=== PATIENT | female | born 1970 | race Caucasian/White ===

== ENCOUNTER 2016-06-20 12:28 | Emergency (ER) | payer BC, OTHER ==
[2016-06-20] MEDS ORDERED: ONDANSETRON 4 MG/2 ML VIAL ONE (12:55)
[2016-06-20] MEDS ORDERED: fentaNYL 100 MCG/2 ML INJ ONE (12:55)
[2016-06-20] MEDS ORDERED: NS 1,000 ML IV ONE ×2 (12:56→15:00)
[2016-06-20] MEDS ORDERED: fentaNYL 100 MCG/2 ML INJ IVP ONE (13:10)
[2016-06-20] MEDS ORDERED: ONDANSETRON 4 MG/2 ML VIAL IVP ONE (13:11)
[2016-06-20 13:13] LABS: % IMMATURE GRANULYOCYTES 0.2 % (0.0-1.1); ABSOLUTE IMMATURE GRANULOCYTES 0.01 10^3/uL (0.00-0.10); ADD DIFF? NO; ADD MORPH? NO; ADD SCAN? NO; ATYPICAL LYMPHOCYTE FLAG 50 (0-99); FRAGMENT RBC FLAG 0 (0-99); HEMATOCRIT 37.6 % (38.0-47.0); HEMOGLOBIN 13.4 g/dL (12.6-16.3); LEFT SHIFT FLG 0 (0-99); LIPEMIA HEMOLYSIS FLAG 90 (0-99); MEAN CELL HEMOGLOBIN CONCENTR. 35.6 g/dL (32.4-36.7); MEAN CELL VOLUME 92.6 fL (81.5-99.8); MEAN PLATELET VOLUME 10.4 fL (8.7-11.7); PLATELET CLUMPS FLAG 0 (0-99); PLATELET COUNT 222 10^3/uL (150-400); RED BLOOD CELL COUNT 4.06 10^6/uL (4.18-5.33); RED CELL DISTRIBUTION WIDTH 12.2 % (11.5-15.2)
[2016-06-20 13:50] LABS: ALANINE AMINOTRANSFERASE 33 IU/L (9-52); ALKALINE PHOSPHATASE 48 IU/L (38-126); ANION GAP 8 mEq/L (8-16); ASPARTATE AMINOTRANSFERASE 25 IU/L (14-46); BILIRUBIN,TOTAL 0.5 mg/dL (0.1-1.4); BILIRUBIN-CONJUGATED 0.3 mg/dL (0.0-0.5); BILIRUBIN-UNCONJUGATED 0.2 mg/dL (0.0-1.1); CALCIUM 9.3 mg/dL (8.5-10.4); CARBON DIOXIDE 24 mEq/l (22-31); CHLORIDE 107 mEq/L (97-110); CREATININE 0.8 mg/dL (0.6-1.0); GLOMERULAR FILTRATION RATE > 60; GLUCOSE 96 mg/dL (70-100); POTASSIUM 3.8 mEq/L (3.5-5.2); SODIUM 139 mEq/L (134-144)
[2016-06-20] MEDS ORDERED: HYDROmorphONE/DILAUDID 1 MG/ML SYR IVP ONE ×2 (14:09→15:00)
[2016-06-20] MEDS ORDERED: IOPAMIDOL (ISOVUE-300) 100 ML BTL IV ONE (14:21)
[2016-06-20 14:24] LABS: COLOR YELLOW; LEUKOCYTE ESTERASE,URINE TRACE (NEGATIVE); NITRITE,URINE NEGATIVE (NEGATIVE)
[2016-06-20 14:27] LABS: BACTERIA TRACE /hpf (NONE SEEN); MUCUS TRACE /lpf (NONE-1+)
--- NOTE | 2016-06-20 15:24 | EDPHY ---
H & P Stated Complaint: hx ibs/n/v/d since sat llq abd pain - Personal History LMP (Females 10-55): 1-7 Days Ago Current Tetanus/Diphtheria Vaccine: Yes - Medical/Surgical History Hx Asthma: No Hx Chronic Respiratory Disease: No Hx Diabetes: No Hx Cardiac Disease: No Hx Renal Disease: No Hx Cirrhosis: No Hx Alcoholism: No Hx HIV/AIDS: No Hx Splenectomy or Spleen Trauma: No Other PMH: ibs - Social History Smoking Status: Never smoked HPI/ROS: Chief complaint: Abdominal pain History of present illness: This is a 45-year-old female who presents to the emergency department for evaluation of abdominal pain. Patient reports the onset of pain over the last day. She describes diffuse pain that is most pronounced in the lower abdomen. She states prior to the onset of symptoms she had nausea, vomiting and diarrhea, that was a few days prior to the symptoms and has resolved. She denies any specific precipitating factors. She denies any alleviating factors. She denies other associated signs or symptoms including no fevers, no urinary symptoms. She does have a history of IBS and has had abdominal pain problems in the past. Review of systems: A 10 point review of systems was obtained and other than described above was negative (Miki Villela) - Physical Exam Exam: General Appearance: Alert, unwell appearing. Eyes: Pupils equal and round no pallor or injection. ENT, Mouth: Mucous membranes moist. Respiratory: There are no retractions, lungs are clear to auscultation. Cardiovascular: Regular rate and rhythm. Gastrointestinal: Bowel sounds normal. Abdomen is soft, nondistended. There is diffuse tenderness most pronounced in the lower quadrants bilaterally. There is McBurney's point tenderness, when I press in this region she does wince. No obvious peritoneal signs. Neurological: Alert and oriented x4. Strength and sensation intact and symmetrical. Skin: Warm and dry, no rashes. Musculoskeletal: Neck is supple non tender. Extremities are symmetrical, full range of motion. Psychiatric: Patient is oriented X 3, there is no agitation. (Miki Villela) Constitutional: Initial Vital Signs Temperature (C) 36.8 C 06/20/16 12:39 Heart Rate 56 L 06/20/16 12:39 Respiratory Rate 16 06/20/16 12:39 Blood Pressure 105/64 06/20/16 12:39 O2 Sat (%) 99 06/20/16 12:39 O2 Delivery Mode Nasal Cannula O2 (L/minute) 2 Allergies/Adverse Reactions: No Known Allergies Allergy (Unverified 06/20/16 12:37) Home Medications: Medication Instructions Recorded Cephalexin [Keflex (*)] 500 mg PO TID #21 cap 06/20/16 Dicyclomine 06/20/16 Hydrocodone/APAP 5/325 [[place] 1 - 2 tab PO Q4H PRN #10 tab 06/20/16 5/325] Ondansetron Odt [Zofran Odt 4 mg 4 mg PO Q4 PRN #6 tab 06/20/16 (*)] Xanax 06/20/16 Medical Decision Making - Diagnostics Imaging: CT scan cannot rule out early appendicitis Pelvic ultrasound with free fluid (Miki Villela) ED Course/Re-evaluation: Patient discussed with my primary supervising physician Dr. Estee Evans. Patient presents to the emergency department for evaluation of abdominal pain. On presentation she is unwell appearing. Physical exam does reveal McBurney's point tenderness. Baseline blood studies are unremarkable. Urinalysis is concerning for urinary tract infection. CT scan does not clearly identify the appendix. She has been IV hydrated. Symptomatically treated with pain medicine , she does significantly desaturate with pain medication unless on oxygen. She continues to have pain. Given persistent pain at McBurney's point and a CT scan that does not definitively show the appendix Dr. Nnamdi Cueva is asked to consult on the patient. He does request a pelvic ultrasound. Care of patient is turned over to Dr. Evans end of shift. (Miki Villela) 6:00 p.m.-this patient was seen and examined by Dr. Cueva. He feels that the patient is safe and stable for discharge home and that there is no evidence of acute appendicitis. The patient will follow up in the office for recheck tomorrow. I interviewed and examined the patient she awoke with sudden onset of lower pain, which waxed and waned this morning. The pain is now localized to left quadrant. Similar to prior ovarian cyst several years ago. Abdomen is soft, left tenderness. Pelvic ultrasound reveals a small amount free fluid in pelvis. Toradol 30 mg IV given for suspected ruptured ovarian cyst. Given that she does not have urinary tract infection symptoms, she will hold the antibiotic for now, pending urine culture results. (Estee Evans) Differential Diagnosis: Included but not limited to IBS, colitis, appendicitis, diverticulitis, pancreatitis, biliary tract disease, urinary tract disease, pelvic pathology including cyst and torsion (Miki Villela) Differential diagnosis includes though it is not limited to appendicitis, cholecystitis, diverticulitis, pyelonephritis, bowel perforation, small bowel obstruction. (Estee Evans) - Data Points Laboratory Results: Laboratory Results 06/20/16 13:05 06/20/16 13:05 06/20/16 06/20/16 14:10 13:05 WBC 4.10 10^3/uL (3.80-9.50) RBC 4.06 L 10^6/uL (4.18-5.33) Hgb 13.4 g/dL (12.6-16.3) Hct 37.6 L % (38.0-47.0) MCV 92.6 fL (81.5-99.8) MCH 33.0 pg (27.9-34.1) MCHC 35.6 g/dL (32.4-36.7) RDW 12.2 % (11.5-15.2) Plt Count 222 10^3/uL (150-400) MPV 10.4 fL (8.7-11.7) Neut % (Auto) 26.1 L % (39.3-74.2) Lymph % (Auto) 54.9 H % (15.0-45.0) King % (Auto) 9.0 % (4.5-13.0) Eos % (Auto) 8.8 H % (0.6-7.6) Baso % (Auto) 1.0 % (0.3-1.7) Nucleat RBC Rel Count 0.0 % (0.0-0.2) Absolute Neuts (auto) 1.07 L 10^3/uL (1.70-6.50) Absolute Lymphs (auto) 2.25 10^3/uL (1.00-3.00) Absolute Monos (auto) 0.37 10^3/uL (0.30-0.80) Absolute Eos (auto) 0.36 10^3/uL (0.03-0.40) Absolute Basos (auto) 0.04 10^3/uL (0.02-0.10) Absolute Nucleated RBC 0.00 10^3/uL (0-0.01) Immature Gran % 0.2 % (0.0-1.1) Immature Gran # 0.01 10^3/uL (0.00-0.10) Sodium 139 mEq/L (134-144) Potassium 3.8 mEq/L (3.5-5.2) Chloride 107 mEq/L (97-110) Carbon Dioxide 24 mEq/l (22-31) Anion Gap 8 mEq/L (8-16) BUN 14 mg/dL (7-23) Creatinine 0.8 mg/dL (0.6-1.0) Estimated GFR > 60 Glucose 96 mg/dL (70-100) Calcium 9.3 mg/dL (8.5-10.4) Total Bilirubin 0.5 mg/dL (0.1-1.4) Conjugated Bilirubin 0.3 mg/dL (0.0-0.5) Unconjugated Bilirubin 0.2 mg/dL (0.0-1.1) AST 25 IU/L (14-46) ALT 33 IU/L (9-52) Alkaline Phosphatase 48 IU/L (38-126) Total Protein 7.0 g/dL (6.3-8.2) Albumin 4.0 g/dL (3.5-5.0) Lipase 43.0 IU/L (23-300) Beta HCG, Qual NEGATIVE Urine Color YELLOW Urine Appearance HAZY Urine pH 7.0 (5.0-7.5) Ur Specific Jber 1.020 (1.002-1.030) Urine Protein NEGATIVE (NEGATIVE) Urine Ketones TRACE H (NEGATIVE) Urine Blood 1+ H (NEGATIVE) Urine Nitrate NEGATIVE (NEGATIVE) Urine Bilirubin NEGATIVE (NEGATIVE) Urine Urobilinogen NEGATIVE EU (0.2-1.0) Ur Leukocyte Esterase TRACE H (NEGATIVE) Urine RBC 1-3 /hpf (0-3) Urine WBC 3-5 H /hpf (0-3) Ur Epithelial Cells TRACE /lpf (NONE-1+) Urine Bacteria TRACE H /hpf (NONE SEEN) Urine Mucus TRACE /lpf (NONE-1+) Ur Culture Indicated? INDICATED H (NI) Urine Glucose NEGATIVE (NEGATIVE) Medications Given: Discontinued Medications Fentanyl (Sublimaze) 100 mcg IVP EDNOW ONE Stop: 06/20/16 13:11 Last Admin: 06/20/16 13:20 Dose: 100 mcg Hydromorphone HCl (Dilaudid) 0.5 mg IVP EDNOW ONE Stop: 06/20/16 14:10 Last Admin: 06/20/16 14:19 Dose: 0.5 mg Hydromorphone HCl (Dilaudid) 0.5 mg IVP EDNOW ONE Stop: 06/20/16 15:01 Last Admin: 06/20/16 15:00 Dose: 0.5 mg Sodium Chloride (Ns) 1,000 mls @ 0 mls/hr IV ONCE ONE PRN Reason: Wide Open Stop: 06/20/16 12:57 Last Admin: 06/20/16 13:10 Dose: 1,000 mls Sodium Chloride (Ns) 1,000 mls @ 0 mls/hr IV ONCE ONE PRN Reason: Wide Open Stop: 06/20/16 15:01 Last Admin: 06/20/16 15:00 Dose: 1,000 mls Ondansetron HCl (Zofran) 4 mg IVP EDNOW ONE Stop: 06/20/16 13:12 Last Admin: 06/20/16 13:21 Dose: 4 mg Departure - Departure Disposition: Home, Routine, Self-Care Clinical Impression: Abdominal pain Qualifiers: Abdominal location: right lower quadrant Qualifier Code: (R10.31) Right lower quadrant pain Urinary tract infection Qualifiers: Urinary tract infection type: acute cystitis Hematuria presence: without hematuria Qualifier Code: (N30.00) Acute cystitis without hematuria Condition: Good Instructions: Abdominal Pain (ED) Additional Instructions: Take ibuprofen 600 mg every 8 hours for pain control. Follow-up with Dr. Cueva in the office tomorrow for recheck. If symptoms worsen or new symptoms develop return to the emergency department. Referrals: Hallie Medina NP [Primary Care Provider] - As per Instructions Prescriptions: Cephalexin [Keflex (*)] 500 mg PO TID #21 cap Hydrocodone/APAP 5/325 [[place] 5/325] 1 - 2 tab PO Q4H PRN #10 tab PRN Reason: Pain, Moderate Ondansetron Odt [Zofran Odt 4 mg (*)] 4 mg PO Q4 PRN #6 tab PRN Reason: Nausea
--- NOTE | 2016-06-20 15:27 | CT ---
"Contrast Enhanced CT Scan of the Abdomen and Pelvis Clinical History: 45-year-old female with a history of irritable bowel syndrome who has been having i ncreasing abdominal pain since last night (located to the left and in the anterior abdomen). Urinalys is findings are suspicious of a UTI. Technique: Following oral contrast, and the uncomplicated intravenous administration of 90 mL of Isov ue-300, a multidetector helical CT scan was obtained from the lung bases inferiorly through the proxi mal femora, with images reformatted at 5.00 and 1.25 mm increments, and reviewed at a variety of wind ow and level settings. Parasagittal and paracoronal reconstructed images are reviewed on the workstat ion. The DFOV is 36.0. Dose reduction techniques were utilized. Comparison Study: Dictated report of pelvic sonography, dated March 21, 2005 (images have been purg ed). Findings: Contrast-Enhanced CT Scan of the Abdomen: The lung bases are notable for some minimal posterior depen dent change. The visualized cardiac chambers and pericardium are unremarkable The liver is borderline -enlarged, measuring 18.1 cm in cephalocaudal diameter. There is no focal hepatic mass. The spleen, g allbladder, bile ducts, pancreas, adrenal glands, and the kidneys are normal in appearance. The aorta tapers normally, and the IVC is normal in caliber. There is a retroaortic left renal vein. There is no ascites or free air. The CT appearance of small bowel is unremarkable. There is mild constipation. There is a relative paucity of intra-abdominal adipose in the right lower quadrant, and the appendix is challenging to appreciate. Contrast-Enhanced CT Scan of the Pelvis: There are no masses, free fluid, or free air. The bladder tejeda s a normal contour. There is normal enhancement of the vasculature. The soft tissues are normal in ap pearance. The uterus is midline. There is no adnexal mass. There may be a small amount of free fluid in the left posterior cul-de-sac, with a Hounsfield unit measurement of 15. Skeletal System: Normal. Impression: 1. Borderline-hepatomegaly. 2. Mild constipation. 3. Small amount of free fluid in the left posterior cul-de-sac. Results were discussed with Miki Villela PA-C. A Document Only message has been documented for PABLO Koch in the [employer] | Critical Resu lt system on 06/20/2016 15:21, Message ID [id number]."
--- NOTE | 2016-06-20 17:21 | US ---
Transabdominal and Endovaginal Pelvic Ultrasound Clinical History: 45-year-old female in the ED with left lower quadrant abdominal pain for 11 hours. The patient is A1 and her LMP was June 13, 2016. She is not on hormone replacement therapy o r taking oral contraceptives, and denies any prior pelvic surgery. Her test was negative. S he has a history of IBS. Free fluid was identified in the pelvic cul-de-sac on recent CT imaging. TECHNIQUE: A curvilinear 5 MHz transducer was initially used to sonographically evaluate the pelvis, using a full urinary bladder as a window. To better assess the uterine architecture and the adnexal s tructures, endovaginal pelvic sonography was also performed. Color and spectral Doppler were used. Comparison: CT imaging of the pelvis from earlier this afternoon at 2:37 p.m.. Findings: Transabdominal Pelvic Sonography: The uterus is normal in size, shape, and position, measuring 8.7 x 4.0 x 4.8 cm. The visualized aspects of the urinary bladder are normal. The right and left ovaries a re normal. There is some free fluid in the cul-de-sac. The urinary bladder is moderately distended. Endovaginal Pelvic Sonography: The endometrium is homogeneous and measures 4.7 mm. The right ovary me asures 1.8 x 3.5 x 3.4 cm, and the left ovary measures 1.5 x 2.3 x 3.9 cm. There are tiny follicles a ssociated with each ovary. There is no dominant solid or cystic adnexal mass. Intraovarian vascular f low is documented, with a resistive index of the right ovary measuring 0.55, and of the left ovary me asuring 0.73. cm. There is some free fluid in the pelvic cul-de-sac, which is a nonspecific finding. There was no free fluid at the level of Morison's pouch. Impression: 1. Normal appearance to the uterus, endometrium, and ovaries, with no solid or cystic adnexal mass, o r torsion. 2. There is some free fluid in the pelvic cul-de-sac. Results were called to Miki Villela PA-C. A Document Only message has been documented for PABLO Koch in the [employer] system on 06/20/2016 17:14, Message ID [id number].
--- NOTE | 2016-06-20 17:54 | GHP ---
[f rep st] HISTORY AND PHYSICAL DATE OF ADMISSION: 06/20/2016 HISTORY OF PRESENT ILLNESS: Patient is a very pleasant, 45-year-old female, who came to the emergency department earlier today for severe abdominal pain. Patient reports the abdominal pain was generalized at first earlier today but now has localized to the suprapubic pubic region and left lower quadrant. Presently she rates the pain 3/10 but reports that it does feel better when she is on the IV pain medicine. Earlier in the emergency department when IV pain medicine wore off she felt the pain severe again. Today she denies fever, diarrhea, vomiting. She denies dysuria, vaginal discharge. Patient reports 2 days ago, on Monday, she had severe nausea, vomiting, and diarrhea. She has a history of irritable bowel syndrome and attributed the symptoms to that. On Monday, symptoms abated and she was actually able to go for a bicycle ride and do normal daily life activities. She was feeling better although a little bit tired on Monday. She awoke today and slowly over the course of the morning developed the severe abdominal pain reported above. She has never had surgery on her abdomen or pelvis. She had taken antispasmodic medication at home before coming to the emergency department, Bentyl. She also took a Xanax in an effort to control the pain. Patient has never had a colonoscopy. She denies any history of ulcerative colitis or Crohn disease in her family, denies inflammatory bowel disease overall. ALLERGIES: No known drug allergies. MEDICATIONS: Bentyl and Xanax p.r.n., taken earlier today. PAST SURGICAL HISTORY: None. PAST MEDICAL HISTORY: Irritable bowel syndrome. SOCIAL HISTORY: Patient is an employment law attorney, , no children, lives in [place]. REVIEW OF SYSTEMS: Please see above for pertinent negatives. A 10-point review of systems was performed. PHYSICAL EXAM: GENERAL: Patient is a very pleasant patient lying fairly still in the emergency department. She appears comfortable. HEAD AND NECK: Normocephalic, atraumatic. Nonicteric. CHEST: CTA bilaterally. HEART: Regular rhythm, bradycardia. ABDOMEN: Nondistended, very soft to palpation in all 4 quadrants. Mild left lower quadrant suprapubic pain to palpation. Negative rebound. Negative psoas sign. EXTREMITIES: No lower extremity edema. RADIOLOGY: CT of the abdomen with IV contrast was obtained which demonstrates a very small amount of free fluid in the left posterior cul-de-sac, otherwise normal. There is some mild constipation. Pelvic ultrasound pending. IMPRESSION: A 45-year-old female with moderate to severe abdominal pain. RECOMMENDATION: We will follow up after pelvic ultrasound results, I will discuss the case shortly with Dr. Cueva. Patient may need to be admitted for pain control in observation. She may need to have a gastroenterology consult tomorrow if pain persists. plevic ultrasound negative, CT inconclusive for appendicitis. PT seen by Dr Cueva. Evaluated. Patient feeling better although received pain meds. Sent home with instructions to return if pain increases, call our office tomorrow with update. Explained to pt that she still may have an acute process ongoing but given the fact she feels better, is reliable, and would like to go home she can be discharged. /[id number]/MODL MTDD
[2016-06-20] MEDS ORDERED: KETOROLAC 30 MG/1 ML SDV IVP ONE (18:08)
[2016-06-20 18:21] VITALS: BP 112/68; PULSE 45; RESP 14; TEMP 97.7; O2SAT 96
== END 2016-06-20 18:20 | disposition home or self-care (01) ==
DX: N30.00 Acute cystitis without hematuria (principal); B96.89 Other specified bacterial agents as the cause of diseases classified elsewhere
CPT/HCPCS: 96374; J1170; J1885; J2405; J3010; Q9967

== ENCOUNTER → 2016-07-22 | Outpatient (CLI) | payer BC | LOC: BMCIMAGING 07:57 | DX: Z12.31 Encounter for screening mammogram for malignant neoplasm of breast (principal); Z80.3 Family history of malignant neoplasm of breast | CPT/HCPCS: G0202 ==

== ENCOUNTER → 2017-07-24 | Outpatient (CLI) | payer BC | LOC: BMCIMAGING 08:55 | PROVIDERS: ATTEND Internal Medicine | DX: Z12.31 Encounter for screening mammogram for malignant neoplasm of breast (principal) ==

== ENCOUNTER → 2018-03-06 | Outpatient (CLI) | payer BC | LOC: BMCIMAGING 10:55 | PROVIDERS: ATTEND Physician Assistant | DX: M25.551 Pain in right hip (principal); M25.552 Pain in left hip ==

== ENCOUNTER 2018-10-13 12:57 | Emergency (ER) | payer BC ==
--- NOTE | 2018-10-13 13:12 | EDPHY ---
H & P Stated Complaint: lower back, left lower back pain after falling off of horse yesterday Source: Patient Exam Limitations: No limitations - Personal History LMP (Females 10-55): 1-7 Days Ago Current Tetanus/Diphtheria Vaccine: Unsure Current Tetanus Diphtheria and Acellular Pertussis (TDAP): Unsure - Medical/Surgical History Hx Asthma: No Hx Chronic Respiratory Disease: No Hx Diabetes: No Hx Cardiac Disease: No Hx Renal Disease: No Hx Cirrhosis: No Hx Alcoholism: No Hx HIV/AIDS: No Hx Splenectomy or Spleen Trauma: No Other PMH: ibs - Social History Smoking Status: Never smoked Time Seen by Provider: 10/13/18 13:12 HPI/ROS: HPI: This is a 48-year-old female who presents with Chief Complaint: lower back, left lower back pain after falling off of horse yesterday Location: Midline lumbar back Quality: Pain Duration: Since yesterday afternoon Signs and Symptoms: No bleeding, no radiation, no numbness, no weakness, no tingling, no incontinence, no decreased range of motion, no swelling, no pain, no fever Timing: Acute Severity: 09/28 Context: Patient complains of midline lumbar back pain since yesterday when she fell off her horse yesterday injuring lumbar area. Note small abrasion over the area of pain. Taking ibuprofen and using arnica for pain with mild relief. Pain is less this morning and made worse with movement and twisting. Patient is most concerned with small area that is painful to touch, "that might be fracture of spinal process." Denies LOC/head injury/neck pain/dizziness/ nausea/vomiting/amnesia. Last menstrual period ended approximately 3-4 days ago. Patient is adamant that she did not hit her head and does not have concussion symptoms. Denies any change in bowel or bladder habits. Walk the dog this morning without any difficulty. Modifying Factors: See above Comment: ROS: A comprehensive 10 system review of systems is otherwise negative aside from elements mentioned in the history of present illness. MEDICAL/SURGICAL/SOCIAL HISTORY: Medical history: Generally healthy. Does not take any regular medications. Surgical history: Denies Social history: . Self-employed. Never smoked. CONSTITUTIONAL: Extremely polite and cooperative physically fit middle-aged white female, awake and alert, no obvious distress HEENT: Atraumatic and normocephalic. NECK: supple, no midline tenderness, flexion 45 degrees, extension 45 degrees, right and left lateral flexion 45 degrees. No meningismus. Cardiovascular: Normal S1/S2, regular rate, regular rhythm, without murmur rub or gallop. PULMONARY/CHEST: Symmetrical and nontender. no crepitus. Clear to auscultation bilaterally. Good air movement. No accessory muscle usage. ABDOMEN: Soft, nondistended, nontender, no ecchymosis. PELVIC: no pain with rocking; bilateral hips flexion 125 degrees, extension 30 degrees, with no pain internal rotation and no pain external rotation. BACK: L3-L5 pinpoint midline tenderness, no paraspinous spasm, deep tendon reflexes 2/2, no pain with straight leg raise, No foot drop. Achilles reflexes are equal bilaterally. Able to walk on heels and toes without difficulty. Full range of motion of flexion, extension, bilateral rotation. EXTREMITIES: 2/2 pulses, strength 5/5, DIP/PIP/MCP flexion/extension intact with good light touch sensation. no deformities, no clubbing, no cyanosis, no edema. NEUROLOGICAL: no focal neuro deficits. GCS 15. Light touch sensation intact. SKIN: Warm and dry, no erythema. no rash. Good capillary refill. (Juan A,Terra) Constitutional: Initial Vital Signs Temperature (C) 36.9 C 10/13/18 13:00 Heart Rate 52 L 10/13/18 13:00 Respiratory Rate 14 10/13/18 13:00 Blood Pressure 111/71 10/13/18 13:00 O2 Sat (%) 100 10/13/18 13:00 O2 Delivery Mode Room Air Allergies/Adverse Reactions: No Known Allergies Allergy (Unverified 06/20/16 12:37) Home Medications: Medication Instructions Recorded Cephalexin [Keflex (*)] 500 mg PO TID #21 cap 06/20/16 Dicyclomine 06/20/16 Hydrocodone/APAP 5/325 [[place] 1 - 2 tab PO Q4H PRN #10 tab 06/20/16 5/325] Ondansetron Odt [Zofran Odt 4 mg 4 mg PO Q4 PRN #6 tab 06/20/16 (*)] Xanax 06/20/16 oxyCODONE/APAP 5/325 [Percocet 1 - 2 tab PO Q4H PRN #10 tab 10/13/18 5/325 (*)] Medical Decision Making ED Course/Re-evaluation: Vital signs reviewed and stable upon arrival. ED decision to obtain CT lumbar spine due to trauma and pinpoint midline tenderness verses x-ray imaging 1420: Called by radiologist, Dr. Chan, who reports CT lumbar scan shows posterior spinous process fracture at L2-L3 but no compression fracture, no facet hypertrophy, no disc herniation, no central cord compression. 1420: ED decision to consult Neurosurgery. Spoke with Dr. Zamora who recommends supportive care and pain control. Does not require brace or Neurosurgery follow-up. 1430: Ambulatory at discharge without any deficits. No signs of neurovascular compromise/tenting of skin/compartment syndrome/ extremities and joints examined above and below area of concern and are neurovascularly intact/cauda equina syndrome/saddle anesthesia. This patient was seen under the supervision of my secondary supervising physician. I evaluated and cared for this patient independently. (Maryann Velazco) The patient was evaluated and managed by the physician senior it assistant. I have reviewed this chart and I agree with the findings and plan of care as documented , as indicated by my signature. I am the secondary supervising physician. ( Sherrell Lee) Differential Diagnosis: Back pain including but not limited to muscular pain, herniated disc, spine fracture, intra-abdominal causes and urinary tract infection. (Maryann Velazco) Departure - Departure Disposition: Home, Routine, Self-Care Clinical Impression: Fracture of spinous process of lumbar vertebra, Fall from horse Condition: Good Instructions: Thoracolumbar Fracture (ED) Additional Instructions: Do not participate in any strenuous or moderate activity until all pain has resolved. Avoid lifting greater than 15 lb until all pain has resolved. Take Tylenol 650 mg every 4 hours and/or Ibuprofen 600 mg every 8 hours with food as needed for pain. Use Percocet every 6 hours as needed for severe/break through pain. Do not use Tylenol and Percocet concomitantly. Follow up with Neurosurgery as needed if you experience any continued pain greater than 2 weeks, weakness, paralysis. Return to the ER immediately if you have new or worsening back pain, fevers/ chills, flu like symptoms, incontinence or inability to urinate or defecate, weakness, paralysis, or any other symptom that concerns you Referrals: Hallie Medina NP [Primary Care Provider] - As per Instructions John Zamora MD [Medical Doctor] - As per Instructions Prescriptions: oxyCODONE/APAP 5/325 [Percocet 5/325 (*)] 1 - 2 tab PO Q4H PRN #10 tab PRN Reason: Pain, Severe
[2018-10-13 14:40] VITALS: BP 117/77
== END 2018-10-13 14:40 | disposition home or self-care (01) ==
DX: S32.029A Unspecified fracture of second lumbar vertebra, initial encounter for closed fracture (principal); V80.010A Animal-rider injured by fall from or being thrown from horse in noncollision accident, initial encounter